=== PATIENT | male | born 1955 | race Caucasian/White ===

== ENCOUNTER 2018-04-29 10:48 | Outpatient (REF) | payer BC, SELFPAY ==
[2018-04-29 22:04] LABS: Hemoglobin A1C 5.6 % (4.5-6.2)
[2018-05-01 09:45] LABS: PSA, Screening 1.3 ng/ml (0-4.5)
== END 2018-04-29 11:08 ==
LOC: NCHCN 10:48
PROVIDERS: PCP Physician Assistant Medical; Visit Provider Physician Assistant Medical
DX: Z00.00 Encounter for general adult medical examination without abnormal findings (principal); Z13.1 Encounter for screening for diabetes mellitus; Z12.5 Encounter for screening for malignant neoplasm of prostate
CPT/HCPCS: 84153; 83036

== ENCOUNTER 2019-06-01 22:47 | Outpatient (REF) | payer BC, SELFPAY ==
[2019-06-01 23:05] LABS: ALT 35 U/L (16-63); AST 27 U/L (15-37); Albumin 4.2 g/dL (3.4-5.0); Alkaline Phosphatase 71 U/L (46-116); Anion Gap 11.6 mmol/L (3-11); Bilirubin, Total 0.5 mg/dL (0.2-1.0); CO2 26.4 mmol/L (21.0-32.0); CREATININE 1.05 mg/dL (0.70-1.30); Calcium 9.4 mg/dL (8.5-10.1); Calculated LDL 114 mg/dL; Chloride 100 mmol/L (98-107); Cholesterol 192 mg/dL (<200); Glucose 107 mg/dL (74-106); HDL Cholesterol 65 mg/dL (40-60); Potassium 4.4 mmol/L (3.5-5.1); Sodium 138 mmol/L (136-145); Total Protein 7.7 g/dL (6.4-8.2); Triglyceride 68 mg/dL (<150)
[2019-06-01 23:17] LABS: BUN 25 mg/dL (7-18)
[2019-06-03 12:35] LABS: PSA, Screening 1.6 ng/mL (0.0-4.5)
== END 2019-06-01 23:07 ==
LOC: NCHCN 22:47
PROVIDERS: PCP Physician Assistant Medical; Visit Provider Physician Assistant Medical
DX: Z00.00 Encounter for general adult medical examination without abnormal findings (principal); Z13.220 Encounter for screening for lipoid disorders; Z13.228 Encounter for screening for other metabolic disorders; Z12.5 Encounter for screening for malignant neoplasm of prostate
CPT/HCPCS: 80053; 80061; 84153

== ENCOUNTER 2020-06-20 13:58 | Outpatient (REF) | payer BC, SELFPAY ==
[2020-06-20 15:44] LABS: ALT 35 U/L (16-63); AST 27 U/L (15-37); Albumin 4.3 g/dL (3.4-5.0); Alkaline Phosphatase 67 U/L (46-116); Anion Gap 9.9 mmol/L (3-11); BUN 20 mg/dL (7-18); Bilirubin, Total 0.5 mg/dL (0.2-1.0); CO2 26.1 mmol/L (21.0-32.0); CREATININE 1.02 mg/dL (0.70-1.30); Calculated LDL 150 mg/dL (<100); Chloride 101 mmol/L (98-107); Cholesterol 230 mg/dL (<200); Glucose 107 mg/dL (74-106); HDL Cholesterol 60 mg/dL (40-60); Potassium 4.4 mmol/L (3.5-5.1); Sodium 137 mmol/L (136-145); Total Protein 7.6 g/dL (6.4-8.2); Triglyceride 101 mg/dL (<150)
[2020-06-20 17:09] LABS: Hemoglobin A1C 5.7 % (<5.7)
[2020-06-20 22:09] LABS: PSA, Screening 1.4 ng/mL (0.0-4.5)
== END 2020-06-20 14:18 ==
LOC: NCHCN 13:58
PROVIDERS: PCP Physician Assistant Medical; Visit Provider Physician Assistant Medical
DX: Z00.00 Encounter for general adult medical examination without abnormal findings (principal); E78.5 Hyperlipidemia, unspecified; R73.03 Prediabetes; Z12.5 Encounter for screening for malignant neoplasm of prostate
CPT/HCPCS: 80053; 80061; 84153; 83036

== ENCOUNTER 2021-03-27 12:54 | Outpatient (REF) | payer BC, SELFPAY ==
[2021-03-27 16:26] LABS: ALT 31 U/L (16-63); AST 22 U/L (15-37); Albumin 4.5 g/dL (3.4-5.0); Alkaline Phosphatase 73 U/L (46-116); Anion Gap 8.5 mmol/L (3-11); BUN 20 mg/dL (7-18); Bilirubin, Total 0.6 mg/dL (0.2-1.0); CO2 28.5 mmol/L (21.0-32.0); CREATININE 0.9 mg/dL (0.70-1.30); Calcium 9.3 mg/dL (8.5-10.1); Calculated LDL 130 mg/dL (<100); Chloride 103 mmol/L (98-107); Cholesterol 220 mg/dL (<200); Glucose 93 mg/dL (74-106); HDL Cholesterol 71 mg/dL (40-60); Sodium 140 mmol/L (136-145); Total Protein 7.9 g/dL (6.4-8.2); Triglyceride 95 mg/dL (<150)
[2021-03-27 16:41] LABS: Hemoglobin A1C 5.5 % (<5.7)
== END 2021-03-27 12:55 | disposition home or self-care (01) ==
LOC: NCHCN 12:54
PROVIDERS: PCP Physician Assistant Medical; Visit Provider Physician Assistant Medical
DX: E78.5 Hyperlipidemia, unspecified (principal); R73.03 Prediabetes
CPT/HCPCS: 80053; 80061; 83036

== ENCOUNTER 2022-01-02 13:14 | Outpatient (REF) | payer BC, SELFPAY ==
[2022-01-02 18:43] LABS: HCT 44.3 % (40.0-50.0); HGB 15.6 g/dL (13.5-17.5); MCH 31.4 pg (27.0-33.0); MCHC 35.2 % (32.0-36.0); MCV 89 fL (80-95); MPV 9.6 fL (8.0-11.0); Platelet Count 258 10^3/uL (130-400); RBC 4.97 10^6/uL (4.36-5.78); RDW 12.4 % (11.8-14.1); RDW-SD 40.7 fL; WBC 7.23 10^3/uL (4.4-10.8)
[2022-01-02 19:07] LABS: ALT 37 U/L (16-63); AST 30 U/L (15-37); Albumin 4.3 g/dL (3.4-5.0); Alkaline Phosphatase 70 U/L (46-116); Anion Gap 8.9 mmol/L (3-11); BUN 19 mg/dL (7-18); Bilirubin, Total 0.5 mg/dL (0.2-1.0); CO2 25.1 mmol/L (21.0-32.0); CREATININE 0.9 mg/dL (0.70-1.30); Calcium 9.1 mg/dL (8.5-10.1); Chloride 98 mmol/L (98-107); Glucose 106 mg/dL (74-106); Potassium 3.8 mmol/L (3.5-5.1); Sodium 132 mmol/L (136-145); Total Protein 8.1 g/dL (6.4-8.2)
[2022-01-02 19:50] LABS: Hemoglobin A1C 5.6 % (<5.7)
[2022-01-02 21:00] LABS: Calculated LDL 108 mg/dL (<100); Cholesterol 202 mg/dL (<200); HDL Cholesterol 75 mg/dL (40-60); Triglyceride 96 mg/dL (<150)
== END 2022-01-02 13:15 | disposition home or self-care (01) ==
LOC: NCHCN 13:14
PROVIDERS: PCP Physician Assistant Medical; Visit Provider Physician Assistant Medical
DX: R73.03 Prediabetes (principal); I10 Essential (primary) hypertension; E78.5 Hyperlipidemia, unspecified; N40.0 Benign prostatic hyperplasia without lower urinary tract symptoms; Z12.5 Encounter for screening for malignant neoplasm of prostate; R23.3 Spontaneous ecchymoses
CPT/HCPCS: 80053; 80061; 84153; 85027; 83036

== ENCOUNTER 2022-11-14 16:19 | Outpatient (REF) | payer MEDICARE, SELFPAY ==
[2022-11-14 18:58] LABS: Abs Immature Grans 0.02 10^3/uL (0.0-0.06); Absolute Basophil Count 0.08 10^3/uL (0.0-0.2); Absolute Eosinophil Count 0.31 10^3/uL (0.0-0.7); Absolute Lymphocyte Count 1.54 10^3/uL (1.2-3.4); Absolute Monocyte Count 0.65 10^3/uL (0.1-0.8); Basophils % 1.4; Eosinophils % 5.3; HCT 44.8 % (40.0-50.0); Immature Grans % 0.3; Lymphocytes % 26.6; MCH 30.4 pg (27.0-33.0); MCHC 33.5 % (32.0-36.0); MCV 91 fL (80-95); MPV 9.8 fL (8.0-11.0); Monocytes % 11.2; Neutrophils % 55.2; Platelet Count 235 10^3/uL (130-400); RBC 4.94 10^6/uL (4.36-5.78); RDW 12.5 % (11.8-14.1); RDW-SD 41.3 fL
[2022-11-14 19:08] LABS: VALPROIC ACID 41.1 ug/mL
[2022-11-14 19:20] LABS: Hemoglobin A1C 5.5 % (<5.7)
[2022-11-14 19:27] LABS: Vitamin D 25 Total 37.9 ng/mL (30-100)
[2022-11-14 19:30] LABS: ALT 28 U/L (16-63); AST 18 U/L (15-37); Albumin 4.2 g/dL (3.4-5.0); Alkaline Phosphatase 57 U/L (46-116); Anion Gap 6.1 mmol/L (3-11); BUN 21 mg/dL (7-18); Bilirubin, Total 0.5 mg/dL (0.2-1.0); CO2 29.9 mmol/L (21.0-32.0); Calcium 9.4 mg/dL (8.5-10.1); Calculated LDL 100 mg/dL (<100); Chloride 102 mmol/L (98-107); Cholesterol 183 mg/dL (<200); Estimated GFR 83.52 (mL/min/1.73m2); Glucose 98 mg/dL (74-106); HDL Cholesterol 51 mg/dL (40-60); Magnesium 1.9 mg/dL (1.8-2.4); Potassium 4.5 mmol/L (3.5-5.1); Sodium 138 mmol/L (136-145); TSH (W/Ref FT4) 1.47 uIU/mL (0.36-3.74); Triglyceride 162 mg/dL (<150); Vitamin B12 598 pg/mL (193-986)
== END 2022-11-14 16:20 | disposition home or self-care (01) ==
LOC: NCHCN 16:19
PROVIDERS: PCP Physician Assistant Medical; Visit Provider Registered Nurse
DX: F32.A Depression, unspecified (principal)
CPT/HCPCS: 80053; 80061; 82306; 80164; 82607; 83036; 83735; 84443; 85025

== ENCOUNTER 2022-12-05 20:38 | Outpatient (REF) | payer MEDICARE, SELFPAY ==
[2022-12-05 20:15] LABS: VALPROIC ACID 39.8 ug/mL
== END 2022-12-05 20:39 | disposition home or self-care (01) ==
LOC: NCHCN 20:38
PROVIDERS: PCP Physician Assistant Medical; Visit Provider Registered Nurse
DX: R41.0 Disorientation, unspecified (principal)
CPT/HCPCS: 80164; 81003

== ENCOUNTER 2023-01-28 15:14 | Outpatient (REF) | payer MEDICARE, SELFPAY ==
[2023-01-28 16:27] LABS: Lithium < 0.2 mmol/l (0.6-1.2)
[2023-01-28 16:48] LABS: ALT 28 U/L (16-63); AST 22 U/L (15-37); Albumin 4.2 g/dL (3.4-5.0); Alkaline Phosphatase 60 U/L (46-116); Anion Gap 6.9 mmol/L (3-11); BUN 16 mg/dL (7-18); Bilirubin, Total 0.5 mg/dL (0.2-1.0); CO2 29.1 mmol/L (21.0-32.0); CREATININE 1.1 mg/dL (0.70-1.30); Calcium 9.8 mg/dL (8.5-10.1); Chloride 101 mmol/L (98-107); Glucose 112 mg/dL (74-106); Potassium 4.1 mmol/L (3.5-5.1); Sodium 137 mmol/L (136-145); Total Protein 8.1 g/dL (6.4-8.2)
== END 2023-01-28 15:15 | disposition home or self-care (01) ==
LOC: NCHCN 15:14
PROVIDERS: PCP Physician Assistant Medical; Visit Provider Physician Assistant Medical
DX: F32.89 Other specified depressive episodes (principal); Z79.899 Other long term (current) drug therapy; Z51.81 Encounter for therapeutic drug level monitoring
CPT/HCPCS: 80053; 80178